=== PATIENT | female | born 1975 | race American Indian/Alaskan Native ===

== ENCOUNTER 2017-06-14 02:02 | Emergency (ER) | payer OTHER ==
[2017-06-14 04:30] LABS: Bacteria,Urine 1+ /HPF (Negative); Bilirubin,Urine NEG (Negative); Blood,Urine NEG (Negative); Color,Urine Yellow (Yellow); Mucus,Urine FEW /HPF; Protein,Urine <15 mg/dL mg/dL (Negative); Urobilinogen,Urine < 2.0 mg/dL (<2.0)
[2017-06-14 04:40] LABS: HCG Qualitative,Urine Negative (Negative)
[2017-06-14] MEDS ORDERED: ULTRAM PO ONE ×2 (04:59→10:27)
[2017-06-14] MEDS ORDERED: ULTRAM ONE (04:59)
--- NOTE | 2017-06-14 07:23 | Emergency Department Report ---
ED Back Pain/Injury HPI - General Chief Complaint: Back Pain/Injury Stated Complaint: BACK PAIN Time Seen by Provider: 06/14/17 07:12 Source: patient Limitations: No Limitations - History of Present Illness Initial Comments: 42-year-old female past medical history hypertension and asthma history of pituitary tumor cholecystectomy appendectomy presents with complaint of right flank pain worsening for 2 days. Patient denies fevers chills nausea vomiting dysuria or hematuria or increased urinary frequency. Patient states that pain started while she was doing laundry today's ago and has persisted and worsened. Patient is awake alert and oriented 3. Accompanied by significant other at bedside. Denies any rash or direct trauma or recent falls that may have hurt her back. MD Complaint: back pain Similar Symptoms Previously: Yes Place: home Radiation: none Severity: moderate Severity scale (0 -10): 6 Quality: aching Consistency: intermittent Improves With: immobilization, supine Worsens With: movement Context: while lifting, turning/twisting, bending Associated Symptoms: denies other symptoms Treatments Prior to Arrival: other (tramadol) - Related Data Previous Rx's Medication Instructions Recorded Last Taken Type Acetaminophen [Acetaminophen TAB] 500 mg PO Q6HR PRN #20 tablet 06/14/17 Unknown Rx Potassium Chloride [K-Dur] 20 meq PO QDAY #7 tablet 06/14/17 Unknown Rx traMADol [Ultram 50 MG tab] 50 mg PO Q6HR PRN #8 tablet 06/14/17 Unknown Rx Allergies Allergy/AdvReac Type Severity Reaction Status Date / Time benazepril Allergy Unknown Verified 06/14/17 03:02 codeine Allergy Dizziness Verified 06/14/17 03:01 hydrocodone Allergy Shortness Verified 06/14/17 03:02 of Breath Penicillins Allergy Shortness Verified 06/14/17 03:01 of Breath ED Review of Systems ROS: Stated complaint: BACK PAIN Other details as noted in HPI Constitutional: denies: chills, fever Eyes: denies: eye pain, eye discharge, vision change ENT: denies: ear pain, throat pain Respiratory: denies: cough, shortness of breath, wheezing Cardiovascular: denies: chest pain, palpitations Endocrine: no symptoms reported Gastrointestinal: denies: abdominal pain, nausea, diarrhea Genitourinary: denies: urgency, dysuria, discharge Musculoskeletal: back pain. denies: joint swelling, arthralgia Skin: denies: rash, lesions Neurological: denies: headache, weakness, paresthesias Psychiatric: denies: anxiety, depression Hematological/Lymphatic: denies: easy bleeding, easy bruising ED Past Medical Hx - Past Medical History Previous Medical History?: Yes Hx Hypertension: Yes Hx Asthma: Yes Additional medical history: Pituitary tumor - Surgical History Past Surgical History?: Yes Hx Appendectomy: Yes Additional Surgical History: gall bladder removal, tonsils, right breast surgery , - Social History Smoking Status: Never Smoker Substance Use Type: None - Medications Home Medications: Home Medications Medication Instructions Recorded Confirmed Last Taken Type Acetaminophen [Acetaminophen TAB] 500 mg PO Q6HR PRN #20 tablet 06/14/17 Unknown Rx Potassium Chloride [K-Dur] 20 meq PO QDAY #7 tablet 06/14/17 Unknown Rx traMADol [Ultram 50 MG tab] 50 mg PO Q6HR PRN #8 tablet 06/14/17 Unknown Rx ED Physical Exam - General Limitations: No Limitations General appearance: alert, in no apparent distress - Head Head exam: Present: atraumatic, normocephalic - Eye Eye exam: Present: normal appearance, PERRL, EOMI - ENT ENT exam: Present: mucous membranes moist - Neck Neck exam: Present: normal inspection - Respiratory Respiratory exam: Present: normal lung sounds bilaterally. Absent: respiratory distress - Cardiovascular Cardiovascular Exam: Present: regular rate, normal rhythm. Absent: systolic murmur, diastolic murmur, rubs, gallop - GI/Abdominal GI/Abdominal exam: Present: soft (abdomen soft nontender nondistended), normal bowel sounds - Extremities Exam Extremities exam: Present: normal inspection - Back Exam Back exam: Present: normal inspection, full ROM, paraspinal tenderness (some paraspinal tenderness near the right latissimus region. No midline cervical thoracic or lumbar spinal tenderness) - Neurological Exam Neurological exam: Present: alert, oriented X3, CN II-XII intact, normal gait - Psychiatric Psychiatric exam: Present: normal affect, normal mood - Skin Skin exam: Present: warm, dry, intact, normal color. Absent: rash ED Course Vital Signs 06/14/17 06/14/17 06/14/17 02:11 02:56 09:11 Temperature 98.2 F 98.2 F Pulse Rate 107 H 99 H 82 Respiratory 18 17 18 Rate Blood Pressure 132/101 132/101 Blood Pressure 140/90 [Right] O2 Sat by Pulse 99 99 97 Oximetry ED Medical Decision Making - Lab Data Result diagrams: 06/14/17 08:33 06/14/17 08:33 - Medical Decision Making A/P: Musculoskeletal back pain, hypokalemia 1- CT abdomen and pelvis shows uterine fibroids shows no renal stones, trace pleural effusion right side lung. Chest x-ray unremarkable. D-dimer is negative. Urinalysis unremarkable and CBC unremarkable 2- K-dur supplementation. Potassium of 3.0 BNP 3- short course of Tylenol, tramadol when necessary 4- follow-up with primary care doctor 5- vs stable before dc Critical care attestation.: If time is entered above; I have spent that time in minutes in the direct care of this critically ill patient, excluding procedure time. ED Disposition Clinical Impression: Hypokalemia Back pain Qualifiers: Back pain location: low back pain Chronicity: acute Back pain laterality: right Sciatica presence: without sciatica Qualified Code(s): M54.5 - Low back pain Disposition: DC- TO HOME OR SELFCARE Is pt being admited?: No Does the pt Need Aspirin: No Condition: Stable Instructions: Hypokalemia (ED), Low Back Strain (ED), Acute Low Back Pain (ED) , Back Pain (ED), Pleural Effusion (ED) Prescriptions: Acetaminophen [Acetaminophen TAB] 500 mg PO Q6HR PRN #20 tablet PRN Reason: Pain Potassium Chloride [K-Dur] 20 meq PO QDAY #7 tablet traMADol [Ultram 50 MG tab] 50 mg PO Q6HR PRN #8 tablet PRN Reason: Pain Referrals: [facility] [Outside] - 3-5 Days PLACIDO CODY MD [Primary Care Provider] - 3-5 Days OMER MORRIS MD [Staff Physician] - 3-5 Days Forms: Accompanied Note, Work/School Release Form(ED) Time of Disposition: 10:13
--- NOTE | 2017-06-14 08:10 | Cat Scan Report ---
CT ABDOMEN PELVIS WITHOUT CONTRAST: HISTORY: Right flank pain. COMPARISON: none. TECHNIQUE: Helical CT in 1.25mm intervals without IV contrast. Sagittal and coronal reconstructions. FINDINGS: Lung bases: Trace right pleural effusion is identified measuring less than 1 cm in thickness. The visualized lung bases are well-aerated. Heart size is normal. Liver: Normal. Biliary system: Cholecystectomy changes. No biliary dilatation. Pancreas: Normal. Spleen: Normal. Kidneys/ureters/bladder: Normal. Adrenal glands: Normal. Aorta: Normal. Intestines: Normal. Appendix: Not confidently identified, correlate with surgical history. No inflammatory changes in the right lower quadrant. Pelvic viscera: 2 simple appearing right ovarian cysts are suspected measuring 2.9 cm and 3.5 cm. The left adnexa is unremarkable. The uterus is slightly lobular probably representing mild uterine fibroid disease. Ascites: Trace pelvic ascites appears physiologic. Adenopathy: None. Musculoskeletal: Normal. IMPRESSION: Right ovarian cysts as described. Probable mild uterine fibroid disease. Trace right pleural effusion of uncertain significance, pleurisy? Cholecystectomy. The appendix is not confidently identified although no inflammatory changes are identified in the right lower quadrant. Correlate with surgical history.
[2017-06-14 08:40] LABS: Basophils % (Auto) 0.5 % (0.0-1.8); Eosinophils # (Auto) 0.2 K/mm3 (0.0-0.4); Eosinophils % (Auto) 1.7 % (0.0-4.3); Hematocrit 35.8 % (30.3-42.9); Hemoglobin 11.4 gm/dl (10.1-14.3); Lymphocytes # (Auto) 2.1 K/mm3 (1.2-5.4); Lymphocytes % (Auto) 20.6 % (13.4-35.0); Mean Corpuscular HGB Conc 32 % (30-34); Mean Corpuscular Volume 80 fl (79-97); Monocytes # (Auto) 0.7 K/mm3 (0.0-0.8); Monocytes % (Auto) 6.8 % (0.0-7.3); Platelet Count 267 K/mm3 (140-440); Red Blood Count 4.48 M/mm3 (3.65-5.03); Red Cell Distribution Width 13.5 % (13.2-15.2)
[2017-06-14 08:53] LABS: Mean Corpuscular Hemoglobin 26 pg (28-32)
[2017-06-14 08:55] LABS: BUN/Creatinine Ratio 17; Blood Urea Nitrogen 10 mg/dL (7-17); Calcium 8.5 mg/dL (8.4-10.2); Hemolysis Index 1
[2017-06-14] MEDS ORDERED: K-DUR PO ONE (09:00)
[2017-06-14 09:12] VITALS: BP 140/90
--- NOTE | 2017-06-14 09:44 | XRay Report ---
ROUTINE CHEST, TWO VIEWS: HISTORY: Right pleural effusion. The trachea, heart, mediastinal contour, lung ford and bony thorax are unremarkable. The trace right pleural effusion seen on CT is not appreciated on x-ray. IMPRESSION: Unremarkable chest x-ray.
== END 2017-06-14 10:31 | disposition home or self-care (01) ==
LOC: ED 02:02
DX: E87.6 Hypokalemia (principal); M54.5 Low back pain; I10 Essential (primary) hypertension; J45.909 Unspecified asthma, uncomplicated; Z90.49 Acquired absence of other specified parts of digestive tract; Z88.0 Allergy status to penicillin; Z88.5 Allergy status to narcotic agent
CPT/HCPCS: 36415; 71046; 74176; 80048; 81001; 81025; 85025; 85379; 99284